=== PATIENT | female | born 1940 | race Hispanic/Latino ===

== ENCOUNTER 2017-11-11 10:33 | Emergency (ER) | payer MEDICARE ==
[~2017-11-11 10:33] MED LIST: AMLO10TA6 PO; ATOR10 PO; CARV3.1262 PO; GABA-529 PO; INSU100I21 SQ; INSU100I3 SQ; LOSA1TAB42 PO; POTA-79 PO; WARF4TAB41 PO
[2017-11-11 11:26] LABS: EOSINOPHILS % (AUTO) 3.1 % (0.0-8.0); HEMATOCRIT 40.3 % (36-48); LYMPHOCYTES % (AUTO) 16.8 % (21.0-51.0); MEAN CORPUSCULAR HEMOGLOBIN 29.6 pg (27.0-33.0); MEAN CORPUSCULAR VOLUME 87.1 fL (79-99); MONOCYTES % (AUTO) 6.1 % (3.0-13.0); NUCLEATED RED BLOOD CELLS 0.1 % (0.0-0.19); PLATELET COUNT (AUTO) 177 K/uL (130-400); RED BLOOD CELL COUNT(AUTO) 4.63 MIL/uL (4.00-5.50); RED CELL DISTRIBUTION WIDTH 13.8 % (11.0-15.5); WHITE BLOOD COUNT (AUTO) 9.5 K/uL (4.8-10.8)
[2017-11-11 11:39] LABS: ALBUMIN 3.4 g/dL (3.5-5.0); BILIRUBIN,TOTAL 0.5 mg/dL (0.2-1.0)
[2017-11-11 11:41] LABS: INR 2.61 (0.85-1.15); PARTIAL THROMBOPLASTIN TIME 32.8 SEC (26.3-35.5); PROTHROMBIN TIME 26.9 SEC (9.6-11.6)
== END 2017-11-11 13:31 | disposition home or self-care (01) ==
LOC: EDH 10:33
DX: S00.83XA Contusion of other part of head, initial encounter (principal); I48.91 Unspecified atrial fibrillation; I10 Essential (primary) hypertension; E78.5 Hyperlipidemia, unspecified; E11.9 Type 2 diabetes mellitus without complications; R01.1 Cardiac murmur, unspecified; Z72.0 Tobacco use; Z86.73 Personal history of transient ischemic attack (TIA), and cerebral infarction without residual deficits; W18.39XA Other fall on same level, initial encounter; Y93.01 Activity, walking, marching and hiking; Y92.89 Other specified places as the place of occurrence of the external cause; Y99.8 Other external cause status
CPT/HCPCS: 36415; 70450; 71045; 72125; 80053; 82550; 85025; 85610; 85730; 93005

== ENCOUNTER → 2018-04-04 | Outpatient (CLI) | payer MEDICARE ==
[~2018-04-04] MED LIST changes: -AMLO10TA6 PO; +AMLO10TA7 PO
== END | disposition home or self-care (01) ==
LOC: SHCH 08:44
PROVIDERS: ATTEND Internal Medicine Cardiovascular Disease
DX: I08.1 Rheumatic disorders of both mitral and tricuspid valves (principal); I48.0 Paroxysmal atrial fibrillation
CPT/HCPCS: 93306

== ENCOUNTER → 2018-05-13 | Outpatient (CLI) | payer MEDICARE ==
[~2018-05-13] VITALS: Ht 154.9 cm; Wt 66.2 kg
[~2018-05-13] MED LIST changes: +REGADENOSON 0.4 MG/5 ML PF SYG IVP SCH
== END | disposition home or self-care (01) ==
LOC: SHCH 08:33
PROVIDERS: ATTEND Internal Medicine Cardiovascular Disease
DX: I50.9 Heart failure, unspecified (principal); I42.9 Cardiomyopathy, unspecified
CPT/HCPCS: 78452; 93017; 96374; A9500 ×2; J2785

== ENCOUNTER → 2018-07-24 | Outpatient (CLI) | payer MEDICARE ==
[~2018-07-24] MED LIST changes: -REGADENOSON 0.4 MG/5 ML PF SYG IVP SCH
== END | disposition home or self-care (01) ==
LOC: SHCH 09:55
PROVIDERS: ATTEND Internal Medicine Cardiovascular Disease
DX: I08.1 Rheumatic disorders of both mitral and tricuspid valves (principal); I25.10 Atherosclerotic heart disease of native coronary artery without angina pectoris; I11.9 Hypertensive heart disease without heart failure
CPT/HCPCS: 93306

== ENCOUNTER → 2019-12-18 | Outpatient (CLI) | payer MEDICARE ==
[~2019-12-18] MED LIST changes: +AMLO-258 PO; -AMLO10TA7 PO
== END | disposition home or self-care (01) ==
LOC: DAH 10:00 → EDSTATUS 12-23 12:35
PROVIDERS: ATTEND Internal Medicine Gastroenterology
DX: U07.1 COVID-19 (principal)
CPT/HCPCS: C9803; U0003

== ENCOUNTER → 2022-08-10 | Outpatient (CLI) | payer OTHER, MEDICARE ==
[~2022-08-10] MED LIST changes: +AEC81 PO; -CARV3.1262 PO; +FURO20TA4 PO; -GABA-529 PO; +GABA300C PO; -INSU100I21 SQ; +LORA10TA7 PO; -LOSA1TAB42 PO; +METO25TA3 PO; +OMEP40CA21 PO; +POTA-364 PO; -POTA-79 PO; +SACU1TAB PO; +TAMS-1 PO
== END | disposition home or self-care (01) ==
LOC: SHCH 10:21
PROVIDERS: ATTEND Internal Medicine Cardiovascular Disease
DX: I08.3 Combined rheumatic disorders of mitral, aortic and tricuspid valves (principal); I11.9 Hypertensive heart disease without heart failure; E11.9 Type 2 diabetes mellitus without complications
CPT/HCPCS: 93306

== ENCOUNTER → 2023-01-24 | Outpatient (CLI) | payer OTHER, MEDICARE ==
[2023-01-24 12:48] LABS: CREATININE 1.2 mg/dL (0.5-1.5); POTASSIUM 3.5 mmol/L (3.5-5.1)
== END | disposition home or self-care (01) ==
LOC: LAB 11:12
PROVIDERS: ATTEND Internal Medicine Cardiovascular Disease
DX: I10 Essential (primary) hypertension (principal)
CPT/HCPCS: 36415; 80048; 83880